=== PATIENT | male | born 1990 | race Caucasian/White ===

== ENCOUNTER 2016-08-25 15:01 | Emergency (ER) | payer BC | END 2016-08-25 17:02 | disposition home or self-care (01) | LOC: ER1 15:01 | DX: J06.9 Acute upper respiratory infection, unspecified (principal) | CPT/HCPCS: 87081; 87880; 99283 ==

== ENCOUNTER 2020-08-17 11:20 | Emergency (ER) | payer OTHER ==
[2020-08-17] MEDS ORDERED: ERYTHROMYCIN O3.5 GM EYELF (12:35)
[2020-08-17] MEDS ORDERED: NAPROSYN500 MG PO (12:35)
== END 2020-08-17 12:51 | disposition home or self-care (01) ==
LOC: ER1 11:20
DX: S05.02XA Injury of conjunctiva and corneal abrasion without foreign body, left eye, initial encounter (principal); Z23 Encounter for immunization; W22.8XXA Striking against or struck by other objects, initial encounter; Y92.009 Unspecified place in unspecified non-institutional (private) residence as the place of occurrence of the external cause
CPT/HCPCS: 90471; 90715; 99282

== ENCOUNTER 2020-12-04 16:05 | Emergency (ER) | payer OTHER ==
[~2020-12-04 16:05] MED LIST: ERYTHROMYCIN O3.5 GM EYELF; NAPROSYN500 MG PO
[2020-12-04] MEDS ORDERED: LODINE CAP 300300 MG PO (17:10)
== END 2020-12-04 17:15 | disposition home or self-care (01) ==
LOC: ER1 16:05
DX: S63.501A Unspecified sprain of right wrist, initial encounter (principal); W22.8XXA Striking against or struck by other objects, initial encounter; Y92.89 Other specified places as the place of occurrence of the external cause
CPT/HCPCS: 29125; 73110; 99283

== ENCOUNTER 2021-05-01 11:43 | Emergency (ER) | payer OTHER ==
[~2021-05-01 11:43] MED LIST changes: +LODINE CAP 300300 MG PO
[2021-05-01] MEDS ORDERED: TESSALON PERLE100 MG PO (12:26)
== END 2021-05-01 12:39 | disposition home or self-care (01) ==
LOC: ER1 11:43
DX: U07.1 COVID-19 (principal)
CPT/HCPCS: 99283